=== PATIENT | female | born 1990 | race African-American/Black ===

== ENCOUNTER → 2020-03-19 | Outpatient (CLI) | payer MEDICARE, OTHER ==
[~2020-03-19] MED LIST: AMLODIPINE BESYL5 MG PO; CALCITRIOL0.5 MCG PO; CALCIUM ACETAT667 M1 PO; CARVEDILOL12.5 MG PO; LASIX80 MG PO
--- NOTE | 2020-03-19 13:05 | Diagnostic Imaging Report ---
EXAM: CHEST 2 VIEWS DATE: 03/19/2020 12:43 PM INDICATION: Preoperative evaluation COMPARISON: None FINDINGS: The trachea is midline. The lungs are symmetrically expanded without evidence for large focal consolidation, pneumothorax, or significant pleural effusion. The cardiomediastinal silhouette is magnified by technique but otherwise unremarkable. The pulmonary vasculature is not engorged. No acute osseous abnormality is identified. The surrounding soft tissues are unremarkable. IMPRESSION: No acute cardiopulmonary process identified. Signed by: Dr. Juan José Ash MD on 03/19/2020 1:02 PM
== END ==
LOC: RAD 05:00 → EDSTATUS 03-25 13:00
PROVIDERS: ATTEND Internal Medicine
DX: U07.1 COVID-19 (principal); Z01.818 Encounter for other preprocedural examination; R14.0 Abdominal distension (gaseous); R10.9 Unspecified abdominal pain; N18.6 End stage renal disease; E66.9 Obesity, unspecified; Z53.8 Procedure and treatment not carried out for other reasons
CPT/HCPCS: 71046; 93005; U0002

== ENCOUNTER → 2020-07-01 | Day surgery (SDC) | payer MEDICARE, OTHER ==
[~2020-07-01] MED LIST changes: +AURYXIA210 MG PO; +FENTANYL CITRATE/PF 100MCG/2 ML INJ ONE; +LIDOCAINE HCL 2% LOCAL INJ 5 ML SDV VIAL INJ ONE; +MIDAZOLAM HCL 2 MG/2 ML VIAL ONE; +PROPOFOL IV EMULSION 10 MG/ML 20 ML VIAL ONE; +SODIUM CHLORIDE 0.9% 500ML 500 ML ONE
[2020-07-01 13:02] LABS: BASOPHILS % 0.5 % (0.0-1.0); EOSINOPHILS # (AUTO) 0.4 (0.0-0.4); EOSINOPHILS % 7.4 % (0.0-6.0); HEMATOCRIT 41.4 % (34.2-44.1); LYMPHOCYTES # (AUTO) 1.1 (1.0-3.2); MEAN CORPUSCULAR HGB CONC 31.4 g/dL (31-35); MONOCYTES # (AUTO) 0.4 (0.2-0.8); MONOCYTES % 6.4 % (4.4-11.3); NEUTROPHILS # (AUTO) 3.8 (2.1-6.9); NEUTROPHILS % 66.5 % (38.7-80.0); PLATELET COUNT 193 x10e3/uL (140-360); RED BLOOD COUNT 4.65 x10e6/uL (3.6-5.1); RED CELL DISTRIBUTION WIDTH 15.1 % (11.7-14.4)
[2020-07-01 13:11] LABS: INR 1.02; PROTHROMBIN TIME 13.9 seconds (11.9-14.5)
[2020-07-01 13:12] LABS: PARTIAL THROMBOPLASTIN TIME 29.9 seconds (23.8-35.5)
[2020-07-01 13:17] LABS: ANION GAP 26.6 mmol/L (8-16); CALCIUM 9.2 mg/dL (8.4-10.2); CREATININE, SERUM 31.23 mg/dL (0.57-1.11); POTASSIUM 4.6 mmol/L (3.5-5.1)
[2020-07-01 14:25] VITALS: BP 134/81
== END | disposition home or self-care (01) ==
LOC: OR 10:37
PROVIDERS: ATTEND Internal Medicine
DX: K29.00 Acute gastritis without bleeding (principal); K21.9 Gastro-esophageal reflux disease without esophagitis; K44.9 Diaphragmatic hernia without obstruction or gangrene; I12.0 Hypertensive chronic kidney disease with stage 5 chronic kidney disease or end stage renal disease; N18.6 End stage renal disease; Z88.0 Allergy status to penicillin; Z01.810 Encounter for preprocedural cardiovascular examination; Z01.812 Encounter for preprocedural laboratory examination; Z11.59 Encounter for screening for other viral diseases; Z99.2 Dependence on renal dialysis
CPT/HCPCS: 36415; 43239; 45378; 80048; 81025; 85025; 85610; 85730; 93005; J2001; J2250; J2704; J3010; J7040; U0002